=== PATIENT | male | born 1980 | race Hispanic/Latino ===

== ENCOUNTER 2022-07-09 17:09 | Emergency (ER) | payer SELFPAY ==
[~2022-07-09] VITALS: Ht 182.9 cm; Wt 105.7 kg
--- NOTE | 2022-07-09 17:17 | NUR ---
ARRIVAL PT ARRIVED AMBULATORY TO ED 5 AFTER CUTTING HIS RIGHT HAND ON GLASS WHILE WORKING. VITALS MONITORED AND DR NOTIFIED.
[2022-07-09 17:18] VITALS: BP 147/75
[2022-07-09 17:21] VITALS: BP 147/75
--- NOTE | 2022-07-09 17:22 | ER.PDOC ---
General Chief Complaint: Extremities Stated Complaint: RIGHT WRIST LAC Time seen by MD: 17:22 Source: patient Exam Limitations: no limitations History of Present Illness Initial Comments 42 yo M was working with glass/window, struck R hand against it and has two minor and one slightly larger laceration on R volar wrist. Occurred: just prior to arrival Recent Injury: Yes Context: tetanus is UTD Where: work Severity: mild Relieved By: rest Prior symptoms/Treatment: Similar symptoms previous Allergies: Coded Allergies: No Known Allergies (Unverified , 07/09/22) Past Medical History Medical History: no pertinent history, asthma Surgical History: no surgical history Family History Significant Family History: no pertinent family hx Social History Alcohol Use: occassionally Drug Use: none Reviewed Nursing Reviewed: Vital Signs, Abn. Noted, Nursing Assessment Review of Systems Constitutional: no symptoms reported EENTM: no symptoms reported Respiratory: no symptoms reported Cardiovascular: no symptoms reported Gastrointestinal: no symptoms reported Genitourinary: no symptoms reported Musculoskeletal: no symptoms reported Skin: other (lacerations as described) All Other Systems: Reviewed and Negative Physical Exam General Appearance: alert, no distress Upper Extremity: joints nml (3 small lacerations) Skin: color nml Vascular: no vascular compromise Neuro/Psych: sensation nml Central Exam: nml cognition, nml mood/affect EENT: eyes nml inspection Neck/Back: nml inspection Respiratory: no resp distress CVS: reg rate & rhythm Abdomen: non-tender (grossly benign) Results/Orders Results/Orders Orders - ALLYN QURESHI MD Xr Wrist Rt (07/09/22 17:27) Vital Signs Date Time Temp Pulse Resp B/P (MAP) Pulse Ox O2 Delivery O2 Flow Rate FiO2 07/09/22 17:21 97.7 66 18 147/75 (99) 95 Room Air* 0 21 07/09/22 17:18 97.7 66 18 07/09/22 17:18 97.7 66 18 95 07/09/22 17:18 97.7 66 18 147/75 (99) 95 Room Air* 0 21 Progress Progress Even the slightly larger puncture/laceration doesn't really need suture repair. I have palpated it and don't feel any foreign body, nor does pt feel foreign body movement when I do so. Ok for conservative management. EKG/XRAY/CT/US XRAY: hand XRAY Comments: no suggestion of foreign body ER DEPART Departure Time of Disposition: 17:52 Disposition: 01 HOME / SELF CARE / HOMELESS Impression: Primary Impression: Laceration of wrist without complication Condition: Stable Patient Instructions: Wound Care, Fmtd-dx-Alol Referrals: PCP,UNKNOWN (PCP) PRIMARY CARE PROVIDER Additional Instructions: Perform good wound care and hygiene. Wounds will require 7-10 days to heal. Follow up if symptoms persist or worsen. Duration or Time Spent with Pa: 10 ALLYN QURESHI MD Jul 09, 2022 17:22
[2022-07-09] MEDS ORDERED: TRIPLE ANTIBIOTIC OINTMENT TP STA (17:45)
--- NOTE | 2022-07-09 17:49 | DIREP ---
PROCEDURE:XRAY WRIST MIN 3VW-RT COMPARISON:None. INDICATIONS:trauma/injury, suspected foreign body FINDINGS: BONES:No fracture. JOINTS:Normal. SOFT TISSUES:Soft tissue swelling about the volar aspect of the distal forearm/wrist. No radiopaque foreign body. OTHER:No additional findings. CONCLUSION:No acute bony abnormality. Soft tissue swelling without radiopaque foreign body. Dictated by: Vamshi Newman M.D. on 07/09/2022 at 05:47 PM
[2022-07-09] MEDS ORDERED: MOTRIN PO STA (17:54)
[2022-07-09 17:55] VITALS: BP 126/99
[2022-07-09] MEDS ORDERED: MOTRIN ONE (17:58)
== END 2022-07-09 17:57 | disposition home or self-care (01) ==
LOC: ER 17:09
DX: S61.511A Laceration without foreign body of right wrist, initial encounter (principal); F10.20 Alcohol dependence, uncomplicated; W25.XXXA Contact with sharp glass, initial encounter; Y93.89 Activity, other specified; Y92.89 Other specified places as the place of occurrence of the external cause; Y99.8 Other external cause status
CPT/HCPCS: 99283; 73110-RT